=== PATIENT | female | born 1985 | race Caucasian/White ===

== ENCOUNTER 2019-03-11 12:09 | Emergency (ER) | payer MEDICAID ==
[~2019-03-11] VITALS: Ht 154.9 cm; Wt 56.7 kg
[2019-03-11 12:25] VITALS: BP 101/66
--- NOTE | 2019-03-11 12:33 | NUR ---
Patient ambulated to bed 11. RN evaluating patient at bedside.
--- NOTE | 2019-03-11 12:56 | NUR ---
PT TO ED WITH C/O COUGH, SORE THROAT, AND BILATERAL BLURRED VISION X 1 DAY. DENIES ANY FOREIGN BODY TO EYE. LUNG SOUNDS CLEAR BILAT. NO DISTRESS NOTED. PT IN BED FOR MD HERMAN.
[2019-03-11 13:33] VITALS: BP 101/66
--- NOTE | 2019-03-11 13:33 | NUR ---
Patient discharged with v/s stable. Written and verbal after care instructions given and explained. Patient alert, oriented and verbalized understanding of instructions. Ambulatory with steady gait. All questions addressed prior to discharge. ID band removed. Patient advised to follow up with PMD. Rx of CALRTIN, KETOTIFEN, AND TESSALON given. Patient educated on indication of medication including possible reaction and side effects. Opportunity to ask questions provided and answered.
== END 2019-03-11 13:30 | disposition home or self-care (01) ==
LOC: MED 12:09
DX: B34.9 Viral infection, unspecified (principal); B30.9 Viral conjunctivitis, unspecified; F17.200 Nicotine dependence, unspecified, uncomplicated; Z98.890 Other specified postprocedural states
CPT/HCPCS: 99283